=== PATIENT | female | born 1995 | race Two or more races ===

== ENCOUNTER 2022-12-06 07:34 | Inpatient (IN) | payer OTHER ==
[~2022-12-06] VITALS: Ht 160 cm; Wt 103.0 kg
[2022-12-06] MEDS ORDERED: PRENATAL VITAM1 EAC4 PO (10:02)
== END 2022-12-09 14:20 | disposition home or self-care (01) | DRG 788 ==
LOC: OB/GYN 07:34 → LDR 07:34 → OB/GYN 12:57
PROVIDERS: Obstetrics & Gynecology; ADMIT Obstetrics & Gynecology; ATTEND Obstetrics & Gynecology
PROC: 4A1HXCZ Monitoring of Products of Conception, Cardiac Rate, External Approach (ICD-10-PCS; 2022-12-06)
PROC: 10D00Z1 Extraction of Products of Conception, Low, Open Approach (ICD-10-PCS; principal; 2022-12-06 10:00)
DX: O42.02 Full-term premature rupture of membranes, onset of labor within 24 hours of rupture (principal); Z3A.39 39 weeks gestation of pregnancy; Z37.0 Single live birth; Z20.822 Contact with and (suspected) exposure to COVID-19